=== PATIENT | male | born 1940 | race Caucasian/White ===

== ENCOUNTER 2023-04-26 12:36 | Day surgery (SDC) | payer MEDICARE, OTHER ==
[~2023-04-26] VITALS: Ht 170.2 cm; Wt 93.9 kg
[2023-04-26] VITALS (9 sets, daily range): BP systolic 100–139; BP diastolic 52–74; PULSE 89–103; RESP 14–16; TEMP 97.9; O2SAT 93–97
[2023-04-26] MEDS ORDERED: MIDAZolam 1mg/ml 10ml vial IV ONE (13:00)
[2023-04-26] MEDS ORDERED: fentaNYL/PF 50MCG/1 ML 2ML syringe IV ONE (13:00)
[2023-04-26] MEDS ORDERED: normal saline 1000ml 1,000 ML IV SCH (13:00)
[2023-04-26] MEDS ORDERED: LOVA40TA2 PO (13:05)
[2023-04-26] MEDS ORDERED: RIVA20TA PO (13:05)
[2023-04-26] MEDS ORDERED: METO-395 PO (13:05)
[2023-04-26] MEDS ORDERED: DIGO250T2 PO (13:05)
[2023-04-26] MEDS ORDERED: AMI200T PO (13:05)
[2023-04-26] MEDS ORDERED: TERA2CAP4 PO (13:05)
[2023-04-26] MEDS ORDERED: FURO20TA4 PO (13:05)
[2023-04-26] MEDS ORDERED: METH2.5T55 PO (13:05)
[2023-04-26 13:48] LABS: BASOPHILS # (AUTO) 0.1 X10'3 (0-0.2); BASOPHILS % (AUTO) 0.7 % (0-1); EOSINOPHILS # (AUTO) 0.1 X10'3 (0-0.9); EOSINOPHILS % (AUTO) 1.1 % (0-6); HEMATOCRIT 34.9 % (42.0-52.0); HEMOGLOBIN 10.8 g/dl (14.0-17.9); LYMPHOCYTES # (AUTO) 0.9 X10'3 (1.1-4.8); LYMPHOCYTES % (AUTO) 10.6 % (21-51); MEAN CORPUSCULAR HEMOGLOBIN 26.2 PG (27.0-31.0); MEAN CORPUSCULAR VOLUME 84.7 FL (78-98); MEAN PLATELET VOLUME 6.6 FL (7.4-10.4); MONOCYTES # (AUTO) 0.9 X10'3 (0-0.9); MONOCYTES % (AUTO) 11.1 % (2-12); NEUTROPHILS # (AUTO) 6.2 X10'3 (1.8-7.7); NEUTROPHILS % (AUTO) 76.5 % (42-75); PLATELET COUNT 431 X10'3 (140-440); RED BLOOD COUNT 4.12 X10'6 (4.70-6.10); RED CELL DISTRIBUTION WIDTH 19.8 % (11.5-14.5); WHITE BLOOD COUNT 8.1 X10'3 (4.5-11.0)
[2023-04-26 13:59] LABS: ALBUMIN 2.6 G/DL (3.4-5.0); ANION GAP 9 (8-16); BLOOD UREA NITROGEN 9 MG/DL (7-18); BUN/CREATININE RATIO 10.7 (10.0-20.0); CHLORIDE 104 MMOL/L (99-107); CREATININE 0.84 MG/DL (0.60-1.10); GLUCOSE 90 MG/DL (70-104); POTASSIUM 3.6 MMOL/L (3.5-5.1); SODIUM 141 MMOL/L (135-145); eCRCL 61 ML/MIN; eGFR 87 ML/MIN
[2023-04-26 14:44] LABS: ANISOCYTOSIS 2+; PLATELET ESTIMATE NORMAL; TOTAL CELLS COUNTED 100
[2023-04-26 14:45] LABS: POIKILOCYTOSIS 1+; POLYCHROMASIA 1+
[2023-04-26 15:21] LABS: INR 1.6 INR; PROTHROMBIN TIME 16.8 SECONDS (9.0-12.0)
== END 2023-04-26 15:15 | disposition home or self-care (01) ==
LOC: SSTAY O 12:36
PROVIDERS: ATTEND Student in an Organized Health Care Education/Training Program
DX: I48.91 Unspecified atrial fibrillation (principal); I11.0 Hypertensive heart disease with heart failure; I50.9 Heart failure, unspecified; E78.5 Hyperlipidemia, unspecified; I71.20 Thoracic aortic aneurysm, without rupture, unspecified; M06.9 Rheumatoid arthritis, unspecified; K21.9 Gastro-esophageal reflux disease without esophagitis; Z87.442 Personal history of urinary calculi; Z79.899 Other long term (current) drug therapy
CPT/HCPCS: 36415; 80048; 85025; 85610; 92960; 93005; J2250; J3010; J7030; 85007; A4620

== ENCOUNTER 2023-05-28 21:21 | Inpatient (IN) | payer MEDICARE, OTHER ==
[~2023-05-28] VITALS: Ht 172.7 cm; Wt 97.7 kg
[~2023-05-28 21:21] MED LIST: AMI200T PO; DIGO250T2 PO; FURO20TA4 PO; LOVA40TA2 PO; METH2.5T55 PO; METO-395 PO; RIVA20TA PO; TERA2CAP4 PO
[2023-05-28] MEDS: methylPREDNISolone sod succ 125mg/2ml vial IV ONE (21:37)
[2023-05-28] MEDS: diltiazem 5mg/ml 5ml inj. IV ONE ×2 (21:37→21:55)
[2023-05-28] MEDS: ipratropium 0.5 MG/2.5ML nebule IH ONE (21:38)
[2023-05-28] MEDS: acetaminophen 1,000mg/100ml IV 100 ML IV ONE (21:38)
[2023-05-28 21:39] VITALS: PULSE 161; RESP 28; O2SAT 93
[2023-05-28] MEDS: albuterol 2.5 MG/3 ML nebule CONTNEB PRN (21:39)
[2023-05-28 21:48] LABS: BASOPHILS # (AUTO) 0.2 X10'3 (0-0.2); BASOPHILS % (AUTO) 1.9 % (0-1); EOSINOPHILS # (AUTO) 0.1 X10'3 (0-0.9); EOSINOPHILS % (AUTO) 0.8 % (0-6); HEMATOCRIT 33.9 % (42.0-52.0); HEMOGLOBIN 10.4 g/dl (14.0-17.9); LYMPHOCYTES # (AUTO) 0.6 X10'3 (1.1-4.8); MEAN CORPUSCULAR HEMOGLOBIN 25.3 PG (27.0-31.0); MEAN CORPUSCULAR HGB CONC 30.8 g/dL (33.0-36.5); MEAN PLATELET VOLUME 7.4 FL (7.4-10.4); MONOCYTES # (AUTO) 0.2 X10'3 (0-0.9); MONOCYTES % (AUTO) 2.4 % (2-12); NEUTROPHILS # (AUTO) 8.7 X10'3 (1.8-7.7); NEUTROPHILS % (AUTO) 88.9 % (42-75); PLATELET COUNT 190 X10'3 (140-440); RED BLOOD COUNT 4.13 X10'6 (4.70-6.10); RED CELL DISTRIBUTION WIDTH 21.3 % (11.5-14.5); WHITE BLOOD COUNT 9.9 X10'3 (4.5-11.0)
[2023-05-28 21:57] LABS: D-DIMER 1.38 MG/L FEU (0-0.50)
[2023-05-28 22:01] LABS: ABG BASE EXCESS 1.7 mmol/L (-2.0-2.0); ABG HCO3 24.9 mmol/L (22.0-26.0); ABG OXYGEN SATURATION 93.3 % (94-97); ABG PCO2 (T) 33.4 mmHg (35.0-48.0); ABG PH (T) 7.488 (7.340-7.440); ABG PO2 (T) 61.3 mmHg (75.0-100.0); ALLEN'S TEST Modified; FHHb 6.7 % (0.0-5.0); FMetHb 0.3 % (0.0-1.5); MODE NASAL CANNULA; PATIENT TEMPERATURE 36.6; TOTAL HEMOGLOBIN 11.1 G/dl (14.0-17.9)
[2023-05-28] MEDS: CefTRIAXone 2gm/D5W 50ml BAG 50 ML IV ONE (22:03)
[2023-05-28] MEDS: albuterol 2.5 MG/3 ML nebule NEB ONE (22:06)
[2023-05-28 22:07] VITALS: PULSE 155; RESP 30; O2SAT 93
[2023-05-28] MEDS: diltiazem-NS 100mg/100ml 100 ML IV SCH (22:10)
[2023-05-28 22:11] VITALS: PULSE 150; RESP 30; O2SAT 94
[2023-05-28 22:11] LABS: ALBUMIN 2.8 G/DL (3.4-5.0); ALBUMIN/GLOBULIN RATIO 0.8 (1.1-1.5); ANION GAP 10 (8-16); ASPARTATE AMINO TRANSFERASE 35 U/L (10-37); BILIRUBIN,TOTAL 1.3 MG/DL (0.1-1.0); BLOOD UREA NITROGEN 14 MG/DL (7-18); BUN/CREATININE RATIO 14.4 (10.0-20.0); CALCIUM 8.1 MG/DL (8.5-10.1); CHLORIDE 103 MMOL/L (99-107); CREATININE 0.97 MG/DL (0.60-1.10); GLUCOSE 111 MG/DL (70-104); POTASSIUM 3.3 MMOL/L (3.5-5.1); PRO BRAIN NATRIURETIC PEPTIDE 1226 PG/ML (0-450); SODIUM 142 MMOL/L (135-145); TOTAL CARBON DIOXIDE 29.2 MMOL/L (24-32); TOTAL PROTEIN 6.1 G/DL (6.4-8.2); eCRCL 55 ML/MIN; eGFR 74 ML/MIN
[2023-05-28 22:13] LABS: ALANINE AMINOTRANSFERASE 20 U/L (12-78); ALKALINE PHOSPHATASE 81 IU/L (46-116)
[2023-05-28 22:15] LABS: DIGOXIN < 0.2 NG/ML (0.9-1.9)
[2023-05-28 22:21] VITALS: PULSE 148; RESP 28; O2SAT 94
[2023-05-28] MEDS: azithromycin/NS 500mg/250ml 250 ML IV ONE (22:24)
[2023-05-28] MEDS: amiodarone/D5 360MG/200ML BAG 200 ML IV SCH (22:34)
[2023-05-28] MEDS: amiodarone 150mg/dext, iso-os 100 ML IV ONE (22:35)
[2023-05-28] MEDS: normal saline 1000ML IV soln IVB ONE ×2 (22:35→22:52)
[2023-05-28 23:27] LABS: PLATELET ESTIMATE NORMAL
[2023-05-28 23:28] LABS: ELLIPTOCYTES FEW; POLYCHROMASIA FEW
[2023-05-28 23:36] LABS: ANISOCYTOSIS 3+
[2023-05-28] MEDS ORDERED: iohexol 350MG/ML 100ml bottle IV ONE (23:51)
[2023-05-29] VITALS (14 sets, daily range): BP systolic 106–122; BP diastolic 62–84; PULSE 116–148; RESP 18–32; TEMP 98–98.4; O2SAT 93–99
[2023-05-29] MEDS ORDERED: ondansetron/PF 4mg/2ml inj IV PRN (00:55)
[2023-05-29] MEDS ORDERED: magnesium hydroxide 30ml (MOM) UD suspension PO PRN (00:55)
[2023-05-29] MEDS ORDERED: magnesium 4gm in 100ml NS 100 ML IV PRN (00:55)
[2023-05-29] MEDS ORDERED: mag hydrox/Alum hydrox/simeth 30ml oral suspension PO PRN (00:55)
[2023-05-29] MEDS ORDERED: acetaminophen 325mg tablet PO PRN (00:55)
[2023-05-29] MEDS ORDERED: potassium Cl 20 mEq SR tablet PO PRN (00:55)
[2023-05-29] MEDS ORDERED: potassium Cl 40MEQ/1/2NS 520ml 520 ML IV PRN (00:55)
[2023-05-29] MEDS ORDERED: magnesium Cl slow-release 64mg tablet PO PRN (00:55)
[2023-05-29] MEDS ORDERED: ZOLP5TAB2 PO (00:56)
[2023-05-29] MEDS: normal saline 1000ml 1,000 ML IV SCH (01:26)
[2023-05-29 01:37] LABS: ALANINE AMINOTRANSFERASE 17 U/L (12-78); ALBUMIN 2.6 G/DL (3.4-5.0); ALBUMIN/GLOBULIN RATIO 0.9 (1.1-1.5); ALKALINE PHOSPHATASE 74 IU/L (46-116); ASPARTATE AMINO TRANSFERASE 21 U/L (10-37); BILIRUBIN,DIRECT 0.5 MG/DL (0-0.3); BILIRUBIN,TOTAL 1.2 MG/DL (0.1-1.0); FREE T4 (FREE THYROXINE) 1.65 NG/DL (0.73-1.40); THYROID STIMULATING HORMONE 0.84 ulU/ml (0.34-4.50); TOTAL PROTEIN 5.6 G/DL (6.4-8.2)
[2023-05-29] MEDS: ipratropium/albuterol 3ml nebule NEB SCH (03:00)
[2023-05-29 04:43] LABS: BILIRUBIN,URINE NEGATIVE (Neg); CLARITY,URINE CLEAR (Clear); COLOR,URINE YELLOW (Yellow); GLUCOSE, URINE NEGATIVE (Neg); KETONES,URINE TRACE mg/dl (Neg); LEUKOCYTE ESTERASE ,URINE NEGATIVE (Neg); NITRITES, URINE NEGATIVE (Neg); OCCULT BLOOD,URINE NEGATIVE (Neg); PH,URINE 5.5 (4.8-8.0); PROTEIN,URINE NEGATIVE (Neg); UROBILINOGEN,URINE 0.2 E.U/dL (0.2-1.0)
[2023-05-29 04:56] LABS: UA COLLECTION TYPE VOIDED
[2023-05-29] MEDS ORDERED: amiodarone 200mg tablet PO SCH (08:00)
[2023-05-29] MEDS: methylPREDNISolone sod succ/PF 40mg inj. IV SCH (08:07)
[2023-05-29] MEDS: metroNIDAZOLE-Flagyl 500mg/NS 100 ML IV SCH (08:08)
[2023-05-29] MEDS: amiodarone 200mg tablet PO SCH (08:08)
[2023-05-29] MEDS: lansoprazole 15mg solutab PO SCH (08:08)
[2023-05-29] MEDS: rivaroxaban 20mg tablet PO SCH (08:08)
[2023-05-29 11:25] LABS: GLUCOSE,BODY FLUID 202 MG/DL; LDH,BODY FLUID 114 U/L; TOTAL PROTEIN,BODY FLUID 2.8 G/DL
[2023-05-29 11:43] LABS: BF RBC COUNT 17500 /CU MM; BF WBC COUNT 328 /CU MM (0-1000); BFAPPEAR CLOUDY; BFCOLOR AMBER; BFSOURCE RIGHT PLEURAL FLD; BFVOLUME 60 ML
[2023-05-29 11:44] LABS: BF MESOTHELIAL CELLS FEW; EOSINOPHILS,BODY FLUID 5 %; LYMPHOCYTES,BODY FLUID 40 %; MONOCYTES,BODY FLUID 13 %; NEUTROPHILS,BODY FLUID 42 %
[2023-05-29] MEDS ORDERED: ondansetron 4mg rapidly disintigrating tab PO PRN (14:10)
[2023-05-29] MEDS: guaiFENesin ER 600mg tablet PO SCH (17:12)
[2023-05-29] MEDS: CefTRIAXone 2gm/D5W 50ml BAG 50 ML IV SCH (20:47)
[2023-05-29] MEDS: azithromycin/NS 500mg/250ml 250 ML IV SCH (20:47)
[2023-05-29] MEDS: metoprolol succinate 25mg (24-HOUR) SR. Tablet PO ONE (21:55)
[2023-05-29] MEDS: potassium Cl 20 mEq SR tablet PO PRN (22:17)
[2023-05-30] VITALS (21 sets, daily range): BP systolic 103–148; BP diastolic 61–87; PULSE 110–151; RESP 16–26; TEMP 97.1–99.1; O2SAT 95–98
[2023-05-30 08:25] LABS: BASOPHILS % (AUTO) 0.1 % (0-1); EOSINOPHILS % (AUTO) 0 % (0-6); HEMATOCRIT 33.5 % (42.0-52.0); HEMOGLOBIN 10.5 g/dl (14.0-17.9); LYMPHOCYTES # (AUTO) 0.6 X10'3 (1.1-4.8); LYMPHOCYTES % (AUTO) 4.9 % (21-51); MEAN CORPUSCULAR HEMOGLOBIN 25.8 PG (27.0-31.0); MEAN CORPUSCULAR HGB CONC 31.3 g/dL (33.0-36.5); MEAN CORPUSCULAR VOLUME 82.2 FL (78-98); MEAN PLATELET VOLUME 7.6 FL (7.4-10.4); MONOCYTES # (AUTO) 0.5 X10'3 (0-0.9); MONOCYTES % (AUTO) 3.7 % (2-12); NEUTROPHILS # (AUTO) 11.9 X10'3 (1.8-7.7); NEUTROPHILS % (AUTO) 91.3 % (42-75); PLATELET COUNT 207 X10'3 (140-440); RED BLOOD COUNT 4.08 X10'6 (4.70-6.10); RED CELL DISTRIBUTION WIDTH 21.5 % (11.5-14.5); WHITE BLOOD COUNT 13.1 X10'3 (4.5-11.0)
[2023-05-30] MEDS: metoprolol succinate 25mg (24-HOUR) SR. Tablet PO SCH (08:29)
[2023-05-30 08:50] LABS: ALBUMIN 2.7 G/DL (3.4-5.0); ANION GAP 10 (8-16); BLOOD UREA NITROGEN 16 MG/DL (7-18); BUN/CREATININE RATIO 16.3 (10.0-20.0); CALCIUM 8.3 MG/DL (8.5-10.1); CHLORIDE 105 MMOL/L (99-107); CREATININE 0.98 MG/DL (0.60-1.10); GLUCOSE 155 MG/DL (70-104); SODIUM 141 MMOL/L (135-145); TOTAL CARBON DIOXIDE 25.8 MMOL/L (24-32); eCRCL 54 ML/MIN; eGFR 73 ML/MIN
[2023-05-30 09:21] LABS: PLATELET ESTIMATE NORMAL
[2023-05-30 09:24] LABS: ANISOCYTOSIS 3+
[2023-05-30 09:25] LABS: ELLIPTOCYTES FEW
[2023-05-30] MEDS ORDERED: amiodarone 150mg/dext, iso-os 100 ML IV ONE (11:30)
[2023-05-30] MEDS ORDERED: morphine 2 MG/ML inj. syringe IV PRN (12:25)
[2023-05-30] MEDS: albumin (Human) 5% 250ml 250 ML IV ONE (12:53)
[2023-05-30] MEDS: amiodarone 150mg/dext, iso-os 100 ML IV ONE (13:52)
[2023-05-30] MEDS: amiodarone/D5 360MG/200ML BAG 200 ML IV SCH (18:42)
[2023-05-31] VITALS (15 sets, daily range): BP systolic 111–138; BP diastolic 66–88; PULSE 92–139; RESP 16–29; TEMP 97.2–98.3; O2SAT 95–98
[2023-05-31 06:01] LABS: BASOPHILS % (AUTO) 0 % (0-1); EOSINOPHILS % (AUTO) 0 % (0-6); HEMATOCRIT 33.8 % (42.0-52.0); HEMOGLOBIN 10.5 g/dl (14.0-17.9); LYMPHOCYTES # (AUTO) 0.5 X10'3 (1.1-4.8); LYMPHOCYTES % (AUTO) 3.7 % (21-51); MEAN CORPUSCULAR HEMOGLOBIN 25.5 PG (27.0-31.0); MEAN CORPUSCULAR HGB CONC 31.1 g/dL (33.0-36.5); MEAN PLATELET VOLUME 7.4 FL (7.4-10.4); MONOCYTES # (AUTO) 0.4 X10'3 (0-0.9); MONOCYTES % (AUTO) 2.9 % (2-12); NEUTROPHILS # (AUTO) 13.8 X10'3 (1.8-7.7); NEUTROPHILS % (AUTO) 93.4 % (42-75); PLATELET COUNT 223 X10'3 (140-440); RED BLOOD COUNT 4.12 X10'6 (4.70-6.10); RED CELL DISTRIBUTION WIDTH 21.2 % (11.5-14.5); WHITE BLOOD COUNT 14.8 X10'3 (4.5-11.0)
[2023-05-31 06:12] LABS: ANION GAP 11 (8-16); BLOOD UREA NITROGEN 26 MG/DL (7-18); BUN/CREATININE RATIO 23.9 (10.0-20.0); CALCIUM 8.7 MG/DL (8.5-10.1); CHLORIDE 105 MMOL/L (99-107); CREATININE 1.09 MG/DL (0.60-1.10); GLUCOSE 155 MG/DL (70-104); POTASSIUM 4.4 MMOL/L (3.5-5.1); SODIUM 140 MMOL/L (135-145); TOTAL CARBON DIOXIDE 23.9 MMOL/L (24-32); eCRCL 49 ML/MIN; eGFR 64 ML/MIN
[2023-05-31 06:40] LABS: PLATELET ESTIMATE NORMAL
[2023-05-31 06:42] LABS: ANISOCYTOSIS 3+; BURR CELLS 1+; ELLIPTOCYTES 2+; HYPOCHROMASIA 1+; POLYCHROMASIA FEW; SCHISTOCYTES FEW
[2023-05-31 11:11] LABS: BILIRUBIN,URINE NEGATIVE (Neg); CLARITY,URINE CLEAR (Clear); COLOR,URINE YELLOW (Yellow); GLUCOSE, URINE NEGATIVE (Neg); KETONES,URINE NEGATIVE (Neg); LEUKOCYTE ESTERASE ,URINE NEGATIVE (Neg); NITRITES, URINE NEGATIVE (Neg); OCCULT BLOOD,URINE MODERATE (Neg); PH,URINE 5.5 (4.8-8.0); PROTEIN,URINE TRACE mg/dl (Neg); UROBILINOGEN,URINE 0.2 E.U/dL (0.2-1.0)
[2023-05-31 11:17] LABS: UA COLLECTION TYPE NON-SPECIFIED
[2023-05-31 11:18] LABS: WBC,URINE 0-4 /HPF (0-4)
[2023-05-31 11:19] LABS: BACTERIA,URINE FEW /HPF (Neg); FINE GRANULAR CAST 0-3 /LPF (NEGATIVE); HYALINE CASTS 0-3 /LPF (NEGATIVE); MUCUS STRANDS NONE SEEN /LPF (Neg); SQUAMOUS EPITHELIAL CELL,UR FEW /LPF (FEW)
[2023-05-31] MEDS: metoprolol tartrate 50mg tablet PO SCH (17:54)
[2023-05-31] MEDS: methylPREDNISolone sod succ 125mg/2ml vial IV SCH (21:56)
[2023-05-31] MEDS: benzonatate 100mg capsule PO PRN (22:01)
[2023-06-01] VITALS (21 sets, daily range): BP systolic 105–118; BP diastolic 46–88; PULSE 86–132; RESP 16–28; TEMP 97–97.9; O2SAT 94–98
[2023-06-01] MEDS: metoprolol tartrate 50mg tablet PO ONE (00:32)
[2023-06-01 06:43] LABS: ALBUMIN 3.1 G/DL (3.4-5.0); ANION GAP 16 (8-16); BLOOD UREA NITROGEN 37 MG/DL (7-18); BUN/CREATININE RATIO 28.9 (10.0-20.0); CALCIUM 9.4 MG/DL (8.5-10.1); CHLORIDE 104 MMOL/L (99-107); CREATININE 1.28 MG/DL (0.60-1.10); GLUCOSE 128 MG/DL (70-104); POTASSIUM 4.9 MMOL/L (3.5-5.1); SODIUM 142 MMOL/L (135-145); TOTAL CARBON DIOXIDE 22.1 MMOL/L (24-32); eCRCL 42 ML/MIN; eGFR 54 ML/MIN
[2023-06-01 06:55] LABS: BASOPHILS % (AUTO) 0.1 % (0-1); EOSINOPHILS % (AUTO) 0 % (0-6); LYMPHOCYTES # (AUTO) 0.6 X10'3 (1.1-4.8); LYMPHOCYTES % (AUTO) 5.6 % (21-51); MEAN PLATELET VOLUME 7.7 FL (7.4-10.4); MONOCYTES # (AUTO) 0.7 X10'3 (0-0.9); MONOCYTES % (AUTO) 6.6 % (2-12); NEUTROPHILS # (AUTO) 9.3 X10'3 (1.8-7.7); NEUTROPHILS % (AUTO) 87.7 % (42-75); PLATELET COUNT 211 X10'3 (140-440); WHITE BLOOD COUNT 10.7 X10'3 (4.5-11.0)
[2023-06-01 07:22] LABS: HEMATOCRIT 35.7 % (42.0-52.0); HEMOGLOBIN 10.9 g/dl (14.0-17.9); MEAN CORPUSCULAR HEMOGLOBIN 25.7 PG (27.0-31.0); MEAN CORPUSCULAR HGB CONC 30.6 g/dL (33.0-36.5); RED BLOOD COUNT 4.25 X10'6 (4.70-6.10); RED CELL DISTRIBUTION WIDTH 21.2 % (11.5-14.5)
[2023-06-01] MEDS: diltiazem 5mg/ml 5ml inj. IV ONE (20:37)
[2023-06-01] MEDS: metoprolol tartrate 50mg tablet PO SCH (21:43)
[2023-06-01] MEDS: temazepam 15mg capsule PO ONE (21:48)
[2023-06-02] VITALS (16 sets, daily range): BP systolic 92–131; BP diastolic 56–79; PULSE 81–130; RESP 16–24; TEMP 96.9–98.6; O2SAT 93–98
[2023-06-02 07:48] LABS: BASOPHILS % (AUTO) 0.2 % (0-1); EOSINOPHILS % (AUTO) 0 % (0-6); HEMATOCRIT 38.4 % (42.0-52.0); HEMOGLOBIN 11.9 g/dl (14.0-17.9); LYMPHOCYTES # (AUTO) 0.4 X10'3 (1.1-4.8); LYMPHOCYTES % (AUTO) 5.1 % (21-51); MEAN CORPUSCULAR HEMOGLOBIN 25.5 PG (27.0-31.0); MEAN CORPUSCULAR HGB CONC 30.9 g/dL (33.0-36.5); MEAN CORPUSCULAR VOLUME 82.6 FL (78-98); MEAN PLATELET VOLUME 7.8 FL (7.4-10.4); MONOCYTES # (AUTO) 0.7 X10'3 (0-0.9); MONOCYTES % (AUTO) 9.2 % (2-12); NEUTROPHILS # (AUTO) 6.8 X10'3 (1.8-7.7); NEUTROPHILS % (AUTO) 85.5 % (42-75); PLATELET COUNT 173 X10'3 (140-440); RED BLOOD COUNT 4.65 X10'6 (4.70-6.10); RED CELL DISTRIBUTION WIDTH 22.3 % (11.5-14.5); WHITE BLOOD COUNT 7.9 X10'3 (4.5-11.0)
[2023-06-02 08:12] LABS: ALBUMIN 3.1 G/DL (3.4-5.0); ANION GAP 13 (8-16); CALCIUM 9.5 MG/DL (8.5-10.1); CHLORIDE 105 MMOL/L (99-107); CREATININE 1.31 MG/DL (0.60-1.10); GLUCOSE 174 MG/DL (70-104); SODIUM 139 MMOL/L (135-145); TOTAL CARBON DIOXIDE 21.4 MMOL/L (24-32); eCRCL 41 ML/MIN; eGFR 52 ML/MIN
[2023-06-02 08:16] LABS: BLOOD UREA NITROGEN 41 MG/DL (7-18); BUN/CREATININE RATIO 31.3 (10.0-20.0); POTASSIUM 5.2 MMOL/L (3.5-5.1)
[2023-06-02 08:46] LABS: ACANTHOCYTES 1+; ANISOCYTOSIS 3+; BURR CELLS 3+; ELLIPTOCYTES 1+; PLATELET ESTIMATE NORMAL
[2023-06-02] MEDS: diltiazem 5mg/ml 5ml inj. IV ONE (15:49)
[2023-06-02] MEDS: normal saline 500ml IV soln 500 ML IV ONE ×2 (15:51→16:57)
[2023-06-02] MEDS ORDERED: normal saline 500ml IV soln 500 ML IV SCH (16:35)
[2023-06-02] MEDS: budesonide 0.5mg/2ml UD nebule IH SCH (19:43)
[2023-06-02] MEDS: ipratropium 0.5 MG/2.5ML nebule IH SCH (19:43)
[2023-06-02] MEDS: temazepam 15mg capsule PO PRN (21:44)
[2023-06-03 02:00] VITALS: BP 122/70; PULSE 117; RESP 20; TEMP 97.9; O2SAT 100
[2023-06-03 07:20] VITALS: BP 119/80; PULSE 100; RESP 20; TEMP 96.8; O2SAT 95
[2023-06-03 07:41] LABS: BASOPHILS % (AUTO) 0.1 % (0-1); EOSINOPHILS % (AUTO) 0 % (0-6); HEMOGLOBIN 11.7 g/dl (14.0-17.9); NEUTROPHILS % (AUTO) 87.1 % (42-75)
[2023-06-03 07:43] LABS: HEMATOCRIT 37.6 % (42.0-52.0); LYMPHOCYTES # (AUTO) 0.4 X10'3 (1.1-4.8); LYMPHOCYTES % (AUTO) 3.6 % (21-51); MEAN CORPUSCULAR HEMOGLOBIN 25.5 PG (27.0-31.0); MEAN CORPUSCULAR HGB CONC 31.1 g/dL (33.0-36.5); MEAN PLATELET VOLUME 8.2 FL (7.4-10.4); MONOCYTES % (AUTO) 9.2 % (2-12); NEUTROPHILS # (AUTO) 9.8 X10'3 (1.8-7.7); PLATELET COUNT 164 X10'3 (140-440); RED BLOOD COUNT 4.59 X10'6 (4.70-6.10); RED CELL DISTRIBUTION WIDTH 22.4 % (11.5-14.5); WHITE BLOOD COUNT 11.2 X10'3 (4.5-11.0)
[2023-06-03] MEDS: normal saline 500ml IV soln 500 ML IV ONE (07:55)
[2023-06-03] MEDS: insulin regular, human 10 units/0.1 ml syringe IV ONE (07:55)
[2023-06-03] MEDS ORDERED: CALCIUM GLUC 1gm/50ml NACL,iso 50 ML IV PRN (07:55)
[2023-06-03 08:00] VITALS: RESP 20; O2SAT 95
[2023-06-03 08:06] LABS: ANION GAP 14 (8-16); BLOOD UREA NITROGEN 47 MG/DL (7-18); BUN/CREATININE RATIO 38.8 (10.0-20.0); CALCIUM 8.5 MG/DL (8.5-10.1); CHLORIDE 106 MMOL/L (99-107); CREATININE 1.21 MG/DL (0.60-1.10); GLUCOSE 146 MG/DL (70-104); POTASSIUM 4.9 MMOL/L (3.5-5.1); SODIUM 141 MMOL/L (135-145); TOTAL CARBON DIOXIDE 20.9 MMOL/L (24-32); eCRCL 44 ML/MIN; eGFR 57 ML/MIN
[2023-06-03 08:24] VITALS: PULSE 104; PULSE 119; RESP 16; O2SAT 94
[2023-06-03 08:57] LABS: ANISOCYTOSIS 3+; GIANT PLATELET FEW; LARGE PLATELETS FEW; NUCLEATED RED BLOOD CELLS 1 /100WBC (0-0); PLATELET ESTIMATE NORMAL; TOTAL CELLS COUNTED 100
[2023-06-03 08:58] LABS: ACANTHOCYTES FEW; BURR CELLS 3+; ELLIPTOCYTES 1+; TEAR DROP CELLS FEW
[2023-06-03] MEDS: sodium bicarbonate (8.4%) 1 mEq/ml syringe IV ONE (10:22)
[2023-06-03] MEDS: dextrose 50%-water 50ml dispensing syringe IV ONE (10:22)
[2023-06-03] MEDS: sodium polystyrene sulfonate 15gm/60ml oral suspension PO ONE (10:23)
[2023-06-03] MEDS ORDERED: METO50TA16 PO (12:34)
[2023-06-03 13:50] VITALS: BP_SYST 107; PULSE 62
== END 2023-06-03 14:30 | disposition home or self-care (01) | DRG 871 ==
LOC: ER 21:22 → ED HOLD 05-29 01:08 → PCU 3S 05-29 14:37
PROVIDERS: ADMIT Internal Medicine Critical Care Medicine; ATTEND Internal Medicine
PROC: B32T1ZZ Computerized Tomography (CT Scan) of Left Pulmonary Artery using Low Osmolar Contrast (ICD-10-PCS; principal; 2023-05-28)
PROC: B3201ZZ Computerized Tomography (CT Scan) of Thoracic Aorta using Low Osmolar Contrast (ICD-10-PCS; 2023-05-28)
PROC: B32S1ZZ Computerized Tomography (CT Scan) of Right Pulmonary Artery using Low Osmolar Contrast (ICD-10-PCS; 2023-05-28)
PROC: 0W993ZZ Drainage of Right Pleural Cavity, Percutaneous Approach (ICD-10-PCS; 2023-05-29)
DX: A41.9 Sepsis, unspecified organism (principal); I50.33 Acute on chronic diastolic (congestive) heart failure; J96.21 Acute and chronic respiratory failure with hypoxia; J15.8 Pneumonia due to other specified bacteria; I42.9 Cardiomyopathy, unspecified; J44.1 Chronic obstructive pulmonary disease with (acute) exacerbation; J91.8 Pleural effusion in other conditions classified elsewhere; J44.0 Chronic obstructive pulmonary disease with (acute) lower respiratory infection; Z66 Do not resuscitate; Z20.822 Contact with and (suspected) exposure to COVID-19; K59.00 Constipation, unspecified; I27.20 Pulmonary hypertension, unspecified; Z96.651 Presence of right artificial knee joint; I48.91 Unspecified atrial fibrillation; Z79.01 Long term (current) use of anticoagulants; Z79.899 Other long term (current) drug therapy
CPT/HCPCS: 32555; 36415; 36600; 70450; 71045; 71275; 80048; 80053; 80076; 80162; 81001; 81003; 82803; 82945; 83605; 83615; 83880; 83930; 84145; 84157; 84439; 84443; 84484; 85007; 85008; 85018; 85025; 85379; 87040; 87070; 87081; 87502; 87503; 87811; 89051; 93005; 93306; 94640; 94760; 96365; 96367; 96375; 99285; A4615; A6258; A7015; G0378; J0131; J0282; J0456; J0696; J1815; J2920; J2930; J3490; J7030; J7040; P9045; Q9967

== ENCOUNTER 2023-07-16 11:55 | Day surgery (SDC) | payer MEDICARE, OTHER ==
[~2023-07-16] VITALS: Ht 170.2 cm; Wt 87.1 kg
[2023-07-16] VITALS (17 sets, daily range): BP systolic 101–115; BP diastolic 46–66; PULSE 78–105; RESP 12–21; TEMP 98.1; O2SAT 93–99
[~2023-07-16 11:55] MED LIST changes: -AMI200T PO; -DIGO250T2 PO; +DILT90TA2 PO; -FURO20TA4 PO; +FURO40TA4 PO; -METO-395 PO; -TERA2CAP4 PO; +ZOLP5TAB2 PO
[2023-07-16] MEDS ORDERED: METO50TA16 PO (12:44)
[2023-07-16] MEDS ORDERED: DILT240C78 PO (12:44)
[2023-07-16] MEDS ORDERED: MELA10TA20 PO (12:44)
[2023-07-16] MEDS ORDERED: AMI200T PO (12:44)
[2023-07-16] MEDS ORDERED: TERA2CAP4 PO (12:44)
[2023-07-16] MEDS ORDERED: B2/V1TAB PO (12:44)
[2023-07-16] MEDS ORDERED: POTA-366 PO (12:44)
[2023-07-16 13:13] LABS: BASOPHILS % (AUTO) 0.6 % (0-1); EOSINOPHILS % (AUTO) 0.5 % (0-6); HEMATOCRIT 34.5 % (42.0-52.0); HEMOGLOBIN 10.9 g/dl (14.0-17.9); LYMPHOCYTES # (AUTO) 0.7 X10'3 (1.1-4.8); LYMPHOCYTES % (AUTO) 10.5 % (21-51); MEAN CORPUSCULAR HGB CONC 31.6 g/dL (33.0-36.5); MEAN CORPUSCULAR VOLUME 79.2 FL (78-98); MEAN PLATELET VOLUME 6.7 FL (7.4-10.4); MONOCYTES # (AUTO) 0.3 X10'3 (0-0.9); MONOCYTES % (AUTO) 4.4 % (2-12); NEUTROPHILS # (AUTO) 5.3 X10'3 (1.8-7.7); PLATELET COUNT 216 X10'3 (140-440); RED BLOOD COUNT 4.36 X10'6 (4.70-6.10); RED CELL DISTRIBUTION WIDTH 26.5 % (11.5-14.5); WHITE BLOOD COUNT 6.3 X10'3 (4.5-11.0)
[2023-07-16] MEDS: fentaNYL/PF 50MCG/1 ML 2ML syringe IV ONE (13:13)
[2023-07-16] MEDS: normal saline 1000ml 1,000 ML IV SCH (13:13)
[2023-07-16] MEDS: MIDAZolam 1mg/ml 10ml vial IV ONE (13:14)
[2023-07-16 13:26] LABS: APTT 41 SECONDS (22-32); INR 1.7 INR; PROTHROMBIN TIME 17.8 SECONDS (9.0-12.0)
[2023-07-16 13:28] LABS: ALANINE AMINOTRANSFERASE 43 U/L (12-78); ALBUMIN 3.3 G/DL (3.4-5.0); ALBUMIN/GLOBULIN RATIO 0.9 (1.1-1.5); ALKALINE PHOSPHATASE 96 IU/L (46-116); ANION GAP 11 (8-16); ASPARTATE AMINO TRANSFERASE 48 U/L (10-37); BLOOD UREA NITROGEN 12 MG/DL (7-18); BUN/CREATININE RATIO 12.2 (10.0-20.0); CALCIUM 8.8 MG/DL (8.5-10.1); CHLORIDE 103 MMOL/L (99-107); CREATININE 0.98 MG/DL (0.60-1.10); GLUCOSE 102 MG/DL (70-104); POTASSIUM 3.4 MMOL/L (3.5-5.1); SODIUM 141 MMOL/L (135-145); TOTAL CARBON DIOXIDE 26.8 MMOL/L (24-32); eCRCL 52 ML/MIN; eGFR 73 ML/MIN
== END 2023-07-16 16:00 | disposition home or self-care (01) ==
LOC: SSTAY O 11:55
PROVIDERS: ATTEND Student in an Organized Health Care Education/Training Program
DX: I48.91 Unspecified atrial fibrillation (principal); I11.0 Hypertensive heart disease with heart failure; I50.9 Heart failure, unspecified; K21.9 Gastro-esophageal reflux disease without esophagitis; E78.5 Hyperlipidemia, unspecified; M06.9 Rheumatoid arthritis, unspecified; Z87.442 Personal history of urinary calculi; Z79.899 Other long term (current) drug therapy; Z98.890 Other specified postprocedural states
CPT/HCPCS: 36415; 80053; 85025; 85610; 85730; 92960; 93005; J2250; J3010; J7030

== ENCOUNTER 2024-05-06 06:19 | Day surgery (SDC) | payer MEDICARE, OTHER ==
[2024-04-30 14:23] LABS: BASOPHILS # (AUTO) 0.1 X10'3 (0-0.2); BASOPHILS % (AUTO) 1.3 % (0-1); EOSINOPHILS # (AUTO) 0.1 X10'3 (0-0.9); EOSINOPHILS % (AUTO) 2.4 % (0-6); LYMPHOCYTES # (AUTO) 1.1 X10'3 (1.1-4.8); LYMPHOCYTES % (AUTO) 19.1 % (21-51); MEAN CORPUSCULAR HEMOGLOBIN 24.5 PG (27.0-31.0); MEAN CORPUSCULAR HGB CONC 31.1 g/dL (33.0-36.5); MEAN CORPUSCULAR VOLUME 78.5 FL (78-98); MEAN PLATELET VOLUME 7.1 FL (7.4-10.4); MONOCYTES # (AUTO) 0.4 X10'3 (0-0.9); MONOCYTES % (AUTO) 6.5 % (2-12); NEUTROPHILS # (AUTO) 4.2 X10'3 (1.8-7.7); NEUTROPHILS % (AUTO) 70.7 % (42-75); PRE OP HEMATOCRIT 35.1 % (42.0-52.0); PRE OP PLATELET COUNT 286 X10'3 (140-440); RED BLOOD COUNT 4.47 X10'6 (4.70-6.10); RED CELL DISTRIBUTION WIDTH 25.2 % (11.5-14.5)
[2024-04-30 14:25] LABS: PRE OP HEMOGLOBIN 10.9 g/dL (14.0-17.9)
[2024-04-30 14:44] LABS: ALBUMIN 3.5 G/DL (3.4-5.0); ALBUMIN/GLOBULIN RATIO 1.1 (1.1-1.5); ALKALINE PHOSPHATASE 102 IU/L (46-116); BLOOD UREA NITROGEN 15 MG/DL (7-18); BUN/CREATININE RATIO 18.5 (10.0-20.0); CALCIUM 9.2 MG/DL (8.5-10.1); CHLORIDE 108 MMOL/L (99-107); CREATININE 0.81 MG/DL (0.60-1.10); PRE OP ALT 50 U/L (30-65); PRE OP ANION GAP 5 (8-16); PRE OP AST 31 U/L (10-37); PRE OP BILIRUB, TOTAL 0.6 MG/DL (0.0-1.0); PRE OP GLUCOSE 101 MG/DL (70-104); PRE OP POTASSIUM 4.2 MMOL/L (3.4-5.1); PRE OP SODIUM 142 MMOL/L (135-145); TOTAL CARBON DIOXIDE 28.9 MMOL/L (24-32); TOTAL PROTEIN 6.8 G/DL (6.4-8.2); eGFR > 90 ML/MIN
[2024-04-30 14:53] LABS: ANISOCYTOSIS 3+; PLATELET ESTIMATE NORMAL
[2024-04-30 14:54] LABS: ELLIPTOCYTES 1+; HYPOCHROMASIA 1+; MICROCYTOSIS 1+; POLYCHROMASIA 2+
[~2024-05-06] VITALS: Ht 170.2 cm; Wt 93.8 kg
[2024-05-06] VITALS (20 sets, daily range): BP systolic 107–148; BP diastolic 53–81; PULSE 16–93; RESP 10–21; TEMP 98; O2SAT 96–100
[2024-05-06] MEDS: ceFAZolin 2gm in dextrose, iso 50 ML IV ONE (05:30)
[2024-05-06] MEDS: DOCUMENT DATE & TIME OF BETA-BLOCKER PO ONE (05:30)
[~2024-05-06 06:19] MED LIST changes: -DILT90TA2 PO; +DOXY25TA19 PO; -FURO40TA4 PO; +IBUPROFEN PO; -LOVA40TA2 PO; +METO50TA16 PO; +POTA-366 PO; +TERA2CAP4 PO; -ZOLP5TAB2 PO
[2024-05-06] MEDS ORDERED: iohexol 350MG/ML 100ml bottle IV ONE (06:58)
[2024-05-06] MEDS ORDERED: iohexol 300 MG/1 ML 50ml polymer ONE (07:00)
[2024-05-06] MEDS: famotidine 20mg tablet PO ONE (07:02)
[2024-05-06] MEDS: ringers solution, lacted 1,000 ML IV SCH (07:03)
[2024-05-06] MEDS ORDERED: fentaNYL/PF 50MCG/1 ML 2ML syringe ONE (08:12)
[2024-05-06] MEDS ORDERED: midazolam 1 mg/ML 2ml injection ONE (08:12)
[2024-05-06] MEDS ORDERED: propofol inj 20 ML IV ONE (08:13)
[2024-05-06] MEDS ORDERED: sevoflurane 250ml liquid IH ONE (08:14)
[2024-05-06] MEDS: iohexol 300 MG/1 ML 50ml polymer IV ONE (08:39)
[2024-05-06] MEDS ORDERED: proCHLORperazine 10 MG/2 ml inj IV PRN (08:45)
[2024-05-06] MEDS ORDERED: morphine 2 MG/ML inj. syringe IV PRN (08:45)
[2024-05-06] MEDS ORDERED: ringers solution, lacted 1,000 ML IV SCH (08:45)
[2024-05-06] MEDS ORDERED: labetalol 20mg/4ml (5mg/ml) syringe IV PRN (08:45)
[2024-05-06] MEDS ORDERED: meperidine/PF 25mg/ml syringe IV PRN (08:45)
[2024-05-06] MEDS ORDERED: morphine 4 MG/ML inj SYRINge IV PRN (08:45)
[2024-05-06] MEDS ORDERED: ondansetron/PF 4mg/2ml inj IV PRN (08:45)
[2024-05-06] MEDS: STERILE BLADIN ONE (12:31)
[2024-05-06] MEDS: MITOMYCIN BLADIN ONE (12:31)
[2024-05-06] MEDS: WATER FOR INJ BLADIN ONE (12:31)
== END 2024-05-06 13:42 | disposition home or self-care (01) ==
LOC: PAS 06:19
PROVIDERS: ATTEND Urology
DX: D49.4 Neoplasm of unspecified behavior of bladder (principal); C67.9 Malignant neoplasm of bladder, unspecified; I10 Essential (primary) hypertension; I48.19 Other persistent atrial fibrillation; I48.91 Unspecified atrial fibrillation; E78.5 Hyperlipidemia, unspecified; I25.10 Atherosclerotic heart disease of native coronary artery without angina pectoris; F41.9 Anxiety disorder, unspecified; M19.90 Unspecified osteoarthritis, unspecified site; Z79.01 Long term (current) use of anticoagulants; Z98.890 Other specified postprocedural states; Z79.899 Other long term (current) drug therapy; Z87.442 Personal history of urinary calculi; Z96.651 Presence of right artificial knee joint
CPT/HCPCS: 51720; 52235; 74420; 80053; 82948; 85025; A4355; A4618; A6258; C1769; J0690; J2250; J2704; J3010; J7030; J7050; J7120; J9280; Q9967; Z7506; Z7512; Z7610; 76000; 85008; 88305

== ENCOUNTER 2025-02-05 07:10 | Day surgery (SDC) | payer MEDICARE, OTHER ==
[~2025-02-05] VITALS: Ht 170.2 cm; Wt 95.2 kg
[2025-02-05] MEDS ORDERED: LIDOcaine 2% Viscous 15ml cup ONE (07:26)
[2025-02-05 08:15] VITALS: BP 119/70; PULSE 96; RESP 16; TEMP 96.8; O2SAT 100
[2025-02-05] MEDS ORDERED: fentaNYL/PF 50MCG/1 ML 2ML syringe ONE (10:31)
[2025-02-05] MEDS ORDERED: MIDAZolam 1 MG/ML 5ML VIAL ONE (10:31)
[2025-02-05 10:54] VITALS: BP 122/68; PULSE 83; RESP 16; O2SAT 97
[2025-02-05 11:00] VITALS: BP 121/66; PULSE 84; RESP 18; O2SAT 98
[2025-02-05 11:10] VITALS: BP 120/64; PULSE 87; RESP 17; O2SAT 98
[2025-02-05 11:20] VITALS: BP 138/68; PULSE 79; RESP 16; O2SAT 98
[2025-02-05 11:30] VITALS: BP 140/69; PULSE 82; RESP 15; O2SAT 98
== END 2025-02-05 11:54 | disposition home or self-care (01) ==
LOC: OR 07:10
PROVIDERS: ATTEND Internal Medicine Gastroenterology
DX: D62 Acute posthemorrhagic anemia (principal); K29.50 Unspecified chronic gastritis without bleeding; K22.70 Barrett's esophagus without dysplasia; K92.1 Melena; M06.9 Rheumatoid arthritis, unspecified; I48.91 Unspecified atrial fibrillation; I25.10 Atherosclerotic heart disease of native coronary artery without angina pectoris; E78.00 Pure hypercholesterolemia, unspecified; Z98.890 Other specified postprocedural states; Z87.891 Personal history of nicotine dependence; Z85.51 Personal history of malignant neoplasm of bladder
CPT/HCPCS: 43239; J2250; J3010; Z7512; Z7610; 99152

== ENCOUNTER 2025-02-22 07:07 | Day surgery (SDC) | payer MEDICARE, OTHER ==
[~2025-02-22] VITALS: Ht 170.2 cm; Wt 93.8 kg
[2025-02-22] MEDS: ringers solution, lacted 1,000 ML IV SCH (05:30)
[~2025-02-22 07:07] MED LIST changes: +FOLI1TAB27 PO; -IBUPROFEN PO; +MELO-102 PO; -METO50TA16 PO
[2025-02-22 07:15] VITALS: BP 138/76; PULSE 97; RESP 16; TEMP 97.1; O2SAT 100
[2025-02-22] MEDS ORDERED: simethicone 40mg/0.6ml oral drops 15ml ONE (08:00)
[2025-02-22] MEDS ORDERED: fentaNYL/PF 50MCG/1 ML 2ML syringe ONE (09:59)
[2025-02-22] MEDS ORDERED: MIDAZolam 1 MG/ML 5ML VIAL ONE (10:00)
[2025-02-22 10:30] VITALS: BP 104/48; PULSE 86; RESP 18; O2SAT 100
[2025-02-22 10:40] VITALS: BP 95/49; PULSE 79; RESP 18; O2SAT 100
[2025-02-22 10:50] VITALS: BP 90/46; PULSE 75; RESP 17; O2SAT 100
[2025-02-22 11:00] VITALS: BP 96/48; PULSE 86; RESP 20; O2SAT 100
== END 2025-02-22 11:20 | disposition home or self-care (01) ==
LOC: PAS 07:07
PROVIDERS: ATTEND Internal Medicine Gastroenterology
DX: R19.5 Other fecal abnormalities (principal); D12.3 Benign neoplasm of transverse colon; D64.9 Anemia, unspecified; K57.30 Diverticulosis of large intestine without perforation or abscess without bleeding; I48.91 Unspecified atrial fibrillation; I25.10 Atherosclerotic heart disease of native coronary artery without angina pectoris; M06.9 Rheumatoid arthritis, unspecified; E78.00 Pure hypercholesterolemia, unspecified; K21.9 Gastro-esophageal reflux disease without esophagitis; N40.1 Benign prostatic hyperplasia with lower urinary tract symptoms; G47.00 Insomnia, unspecified; E66.9 Obesity, unspecified; Z68.32 Body mass index [BMI] 32.0-32.9, adult; Z79.899 Other long term (current) drug therapy; Z98.890 Other specified postprocedural states
CPT/HCPCS: 45385; 88305; A4620; J2250; J3010; J7120; Z7512; Z7610; 99152; A4615